=== PATIENT | male | born 1975 | race Caucasian/White ===

== ENCOUNTER → 2017-06-06 21:28 | Emergency (ER) | payer OTHER ==
[~2017-06-06 21:28] MED LIST: Polymyx/Trimethoprim OPTH* 10 ML BTL RIGHT EYE SCH
--- NOTE | 2017-06-06 22:40 | ED ---
Throat Pain/Nasal Congestion - HPI Summary HPI Summary: 42 male presents with complaints of foreign body sensation in his right eye that began this morning around 10:30am while cleaning his work bench with a blower. Patient has tried irrigating his eye however has not had relief. States his eyes has been very irritated. Has not taken any medications. Admits to some light sensitivity. Denies any vision changes, states its just hard because its constantly watering and irritated. Denies any issue with left eye. No other complaints. PMHx significant for celiac disease. - History of Current Complaint Chief Complaint: EDEyeProblem Time Seen by Provider: 06/06/17 21:45 Hx Obtained From: Patient Onset/Duration: Sudden Onset, Lasting Hours, Still Present Severity: Moderate Associated Signs And Symptoms: Positive: FB Sensation Cough: None - Allergies/Home Medications Allergies/Adverse Reactions: Allergies Allergy/AdvReac Type Severity Reaction Status Date / Time Erythromycin Allergy Unknown Verified 06/06/17 21:31 Reaction Details PMH/Surg Hx/FS Hx/Imm Hx Endocrine/Hematology History: Denies: Hx Diabetes Cardiovascular History: Denies: Hx Hypertension Respiratory History: Denies: Hx Asthma GI History: Reports: Other GI Disorders - celiac disease - Surgical History Surgery Procedure, Year, and Place: none - Immunization History Immunizations Up to Date: Yes Infectious Disease History: No Infectious Disease History: Denies: Traveled Outside the [place] in Last 30 Days - Family History Known Family History: Positive: None - Social History Alcohol Use: Occasionally Substance Use Type: Reports: None Smoking Status (MU): Heavy Every Day Tobacco Smoker Review of Systems Constitutional: Negative Positive: Photophobia - some, Drainage - tearing, Erythema - FB sensation, right eye irritation Cardiovascular: Negative Respiratory: Negative Musculoskeletal: Negative Neurological: Negative All Other Systems Reviewed And Are Negative: Yes Physical Exam Triage Information Reviewed: Yes Vital Signs On Initial Exam: Initial Vitals Temp Pulse Resp BP Pulse Ox 98.6 F 78 16 135/81 98 06/06/17 21:32 06/06/17 21:32 06/06/17 21:32 06/06/17 21:32 06/06/17 21:32 Vital Signs Reviewed: Yes Appearance: Positive: Well-Appearing, Well-Nourished, Pain Distress - mild irritation/discomfort with vision Skin: Positive: Warm, Skin Color Reflects Adequate Perfusion, Dry. Negative: Cold, Numb, Soft, Cyanosis @, Pale, Erythema @ Head/Face: Positive: Normal Head/Face Inspection Eyes: Positive: EOMI, LAYTON, Conjunctiva Inflammed - erythematous, injected right eye. tearing. appears irritated. fluroscein stain revealed small linear corneal abrasion. eyelid examination showed small FB, appears to be wood. no rust ring. removed with q-tip. no other findings, normal visual acuity and fundoscopic exam from what could be visualized, Discharge - tearing, Other: - left eye normal ENT: Positive: Normal ENT inspection, Hearing grossly normal Neck: Positive: Supple, Nontender Respiratory/Lung Sounds: Positive: Clear to Auscultation, Breath Sounds Present. Negative: Rales, Rhonchi, Wheezes Cardiovascular: Positive: Normal, RRR, Pulses are Symmetrical in both Upper and Lower Extremities. Negative: Murmur, Rub Musculoskeletal: Positive: Normal, Strength/ROM Intact Neurological: Positive: Normal, Sensory/Motor Intact, Alert, Oriented to Person Place, Time Psychiatric: Positive: Affect/Mood Appropriate Procedures - Eye Procedure Alcaine Drops Administered: Yes - right eye, for fluroscein stain and Fb removal Eye FB Removal: removal w/ cotton swab - of right eyelid, without complicated, patient tolerated procedure well Antibiotic Ointment/Drps Admin: right eye Diagnostics - Vital Signs Vital Signs Temp Pulse Resp BP Pulse Ox 06/06/17 21:32 98.6 F 78 16 135/81 98 - Laboratory Lab Statement: Any lab studies that have been ordered have been reviewed, and results considered in the medical decision making process. EENT Course/Dx - Course Course Of Treatment: fluroscein stain completed for right eye. corneal abrasion noted. patient tolerated procedure well. small FB removed from upper eyelid with q-tip without complication. patient had relief. no other concerns. antibiotic drops to prevent infection. aware of worsening signs and symptoms. follow up with pcp/optho if symptoms persist, worsen or new develop. cool compresses, ibuprofen and sunglasses recommended. - Differential Diagnoses Differential Diagnoses: Conjunctivitis, Corneal Abrasion, Foreign Body - Diagnoses Provider Diagnoses: Corneal abrasion, right, Foreign body of eyelid, right Discharge - Discharge Plan Condition: Stable Disposition: HOME Patient Education Materials: Corneal Abrasion (ED), Eye Foreign Body (ED) Referrals: Non Staff,Doctor [Primary Care Provider] - Additional Instructions: Use eye drops, 1 drop ever 3 hours for 5-7 days to prevent infection. Cool compresses over eye, sunglasses and ibuprofen may help soothe eye discomfort. Keep fingers out of eyes. Follow up with PCP. If new symptoms develop, persist or worsen please seek medical attention and make an appointment with opthomology.
[2017-06-06 23:01] VITALS: BP 128/75
== END | disposition home or self-care (01) ==
LOC: ED 21:28
DX: T15.01XA Foreign body in cornea, right eye, initial encounter (principal); S05.01XA Injury of conjunctiva and corneal abrasion without foreign body, right eye, initial encounter; X58.XXXA Exposure to other specified factors, initial encounter; Y93.9 Activity, unspecified; Y92.89 Other specified places as the place of occurrence of the external cause
CPT/HCPCS: 99282

== ENCOUNTER 2017-09-28 19:56 | Emergency (ER) | payer OTHER ==
[2017-09-28] MEDS ORDERED: Fluorescein Sodium TOPICAL* 1 MG TEST OPHTHALMIC ONE (20:18)
[2017-09-28] MEDS ORDERED: Tetracaine 0.5% OPTH.SOL 4 ML* 1 DROP BTL RIGHT EYE ONE (20:18)
[2017-09-28] MEDS ORDERED: Polymyx/Trimethoprim OPTH* 10 ML BTL RIGHT EYE ONE (20:55)
--- NOTE | 2017-09-28 20:56 | ED ---
Throat Pain/Nasal Congestion - HPI Summary HPI Summary: 42M presents with right eye pain. He states a branch hit him in the eye today. He states that his eye has been tearing. He denies any foreign body in the eye. He has been flushing it will saline. He admits to photophobia. He wear glasses. He does not wear contacts. pain is 10/10. He denies any pus drainage from eye. - History of Current Complaint Chief Complaint: EDEyeProblem Time Seen by Provider: 09/28/17 20:13 - Allergies/Home Medications Allergies/Adverse Reactions: Allergies Allergy/AdvReac Type Severity Reaction Status Date / Time Erythromycin Allergy Unknown Verified 09/28/17 20:02 Reaction Details PMH/Surg Hx/FS Hx/Imm Hx Endocrine/Hematology History: Denies: Hx Diabetes Cardiovascular History: Denies: Hx Hypertension Respiratory History: Denies: Hx Asthma GI History: Reports: Other GI Disorders - celiac disease - Surgical History Surgery Procedure, Year, and Place: none - Immunization History Immunizations Up to Date: No Infectious Disease History: No Infectious Disease History: Denies: Traveled Outside the [place] in Last 30 Days - Family History Known Family History: Positive: None - Social History Alcohol Use: Occasionally Substance Use Type: Reports: None Smoking Status (MU): Heavy Every Day Tobacco Smoker Review of Systems Negative: Fever Positive: Other - eye pain right eye Negative: Chest Pain Negative: Shortness Of Breath All Other Systems Reviewed And Are Negative: Yes Physical Exam Triage Information Reviewed: Yes Vital Signs On Initial Exam: Initial Vitals Temp Pulse Resp BP Pulse Ox 98.4 F 86 14 142/93 99 09/28/17 19:59 09/28/17 19:59 09/28/17 19:59 09/28/17 19:59 09/28/17 19:59 Completion Of Physical Exam Limited Due To: Dementia Appearance: Positive: Pain Distress Skin: Positive: Warm, Dry Head/Face: Positive: Normal Head/Face Inspection Eyes: Positive: Normal, EOMI, LAYTON, Conjunctiva Inflammed, Other: - uptake on fundoscopic 1/4cm at 12 position ENT: Positive: Normal ENT inspection, Pharynx normal, TMs normal Respiratory/Lung Sounds: Positive: Clear to Auscultation, Breath Sounds Present Cardiovascular: Positive: Normal, RRR Musculoskeletal: Positive: Normal Neurological: Positive: Normal Psychiatric: Positive: Normal - [place] Coma Scale Coma Scale Total: 15 Procedures - Eye Procedure Alcaine Drops Administered: Yes - right 1/4cm uptake at 12 position Diagnostics - Vital Signs Vital Signs Temp Pulse Resp BP Pulse Ox 09/28/17 19:59 98.4 F 86 14 142/93 99 - Laboratory Lab Statement: Any lab studies that have been ordered have been reviewed, and results considered in the medical decision making process. EENT Course/Dx - Course Course Of Treatment: 42M presents with right eye pain. He states a branch hit him in the eye today. He states that his eye has been tearing. He denies any foreign body in the eye. He has been flushing it will saline. He admits to photophobia. He wear glasses. He does not wear contacts. pain is 10/10. He denies any pus drainage from eye. on exam 1/4cm corneal abrasion at 12 position. will treat with polytrim. gave referral to ortho if does not improve. patient understand and agrees with plan. - Differential Diagnoses Differential Diagnoses: Conjunctivitis, Corneal Abrasion, Foreign Body - Diagnoses Provider Diagnoses: Corneal abrasion, right Discharge - Discharge Plan Condition: Good Disposition: HOME Patient Education Materials: Corneal Abrasion (ED) Referrals: Non Staff,Doctor [Primary Care Provider] - Abimael Miller MD [Medical Doctor] - Additional Instructions: Place 1 drop in eye 4 times a day for 5 days Use artificial tears or saline to rinse eye for symptomatic relief Take Tylenol or ibuprofen for pain Follow up with ophthalmology if no improvement in 5 days Return to ED if develop any new or worsening symptoms
[2017-09-28 21:22] VITALS: BP 132/66
== END 2017-09-28 21:24 | disposition home or self-care (01) ==
LOC: ED 19:56
DX: S05.01XA Injury of conjunctiva and corneal abrasion without foreign body, right eye, initial encounter (principal); W22.8XXA Striking against or struck by other objects, initial encounter; Y92.9 Unspecified place or not applicable; F17.200 Nicotine dependence, unspecified, uncomplicated; Z88.3 Allergy status to other anti-infective agents
CPT/HCPCS: 99281; A9270-GY

== ENCOUNTER 2018-05-23 14:00 | Emergency (ER) | payer OTHER ==
[2018-05-23] MEDS ORDERED: Ketorolac INJ* 60 MG/2 ML VIAL IM ONE (15:29)
[2018-05-23] MEDS ORDERED: methylPREDNISolone SOD 40 MG* 1 ML VIAL ONE (15:37)
[2018-05-23] MEDS ORDERED: methylPREDNISolone 125 MG* 2 ML VIAL IM SCH (16:00)
--- NOTE | 2018-05-23 16:14 | RAD ---
Indication: Neck pain, history of cervical laminectomy. CT of the cervical spine was obtained in the axial plane. Sagittal and coronal reconstructed images were obtained. The skull base demonstrates no evidence of fracture. Mastoid air cells are well aerated. The C1 ring is intact. No fracture is noted. The vertebral bodies from C2, C3, C4 are intact. No compression fracture is noted. At C3-C4 spondylitic ridge is noted with a small central disc protrusion indenting the thecal sac. No foraminal stenosis is noted. C4-C5 small central disc protrusion indents the thecal sac and may abut the spinal cord. No foraminal stenosis is noted. Fusion of C5-C6 with anterior plate and screws are noted. At C6-C7 spondylitic ridge is noted. No focal protrusion is noted. At C7-T1 disc space appears unremarkable. Lung apices are unremarkable. IMPRESSION: Anterior fusion of C5-C6. Small central disc protrusions are noted at C3-C4 and C4-C5.
--- NOTE | 2018-05-23 16:15 | RAD ---
Attention: Back pain. CT of the lumbar spine was obtained in the axial plane. Sagittal and coronal reconstructed images were obtained. The patient is status post laminectomy at L5 with transpedicular screws through L5 and S1. Posterior fusion is noted. Intervertebral disc spacer is noted. Endplate changes are noted. At L4-L5 minimal broad-based disc protrusion is noted. No central foraminal stenosis is noted. At L1-L2, L2-L3 and L3-L4 the disc space appears unremarkable. No fracture is identified. IMPRESSION: Laminectomy at L5 and S1. Posterior rodding at L5-S1 is noted. No hardware failure is noted. Transpedicular screws through L5 and S1.
--- NOTE | 2018-05-23 16:51 | ED ---
Back Pain - HPI Summary HPI Summary: Pt here w/ recurring, intermittent cervical pain w/ radiculopathy and LBP x 2 months. 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 Has decreased sensation over Rt forearm which he has on/off over the years and pain in shoulders that feels like he's being stabbed. Denies weakness in UE's and no numbness/tingling/weakness in LE's or change in bowel/bladder habits. No ATKINS. Has not taken anything for pain as he does not like to take meds. H/o surgery of cervical and lumbar spines in the remote past that helped his pain then and he's been addressing intermittent pain w/ live in caregiver and stretches. Despite these efforts as of late, he is unable to control his pain and is here for pain relief - prefers to avoid opiates. - History of Current Complaint Chief Complaint: EDBackInjuryPain Stated Complaint: ARM/BACK PAIN Time Seen by Provider: 05/23/18 14:31 Hx Obtained From: Patient Pain Intensity: 8 - Allergies/Home Medications Allergies/Adverse Reactions: Allergies Allergy/AdvReac Type Severity Reaction Status Date / Time erythromycin base Allergy Unknown Verified 05/23/18 15:31 Reaction Details PMH/Surg Hx/FS Hx/Imm Hx Previously Healthy: Yes Endocrine/Hematology History: Denies: Hx Diabetes Cardiovascular History: Denies: Hx Hypertension Respiratory History: Denies: Hx Asthma GI History: Reports: Other GI Disorders - celiac disease Neurological History: Reports: Other Neuro Impairments/Disorders - cervical and lumbar pathology w/ surgerical repair years ago - Surgical History Surgery Procedure, Year, and Place: none Infectious Disease History: No Infectious Disease History: Denies: Traveled Outside the [place] in Last 30 Days - Family History Known Family History: Positive: None - Social History Occupation: Employed Full-time - self-employed Alcohol Use: None Substance Use Type: Reports: Marijuana Hx Tobacco Use: Yes Smoking Status (MU): Current Every Day Smoker Review of Systems Constitutional: Negative Negative: Fever, Chills, Fatigue Eyes: Negative Negative: Photophobia, Blurred Vision, Diplopia Cardiovascular: Negative Respiratory: Negative Gastrointestinal: Negative Genitourinary: Negative Negative: incontinence Positive: Arthralgia. Negative: Decreased ROM, Edema Skin: Negative Positive: Paresthesia. Negative: Headache, Weakness, Numbness Psychological: Normal All Other Systems Reviewed And Are Negative: Yes Physical Exam Triage Information Reviewed: Yes Vital Signs On Initial Exam: Initial Vitals Temp Pulse Resp BP Pulse Ox 99 F 70 16 120/68 98 05/23/18 14:16 05/23/18 14:16 05/23/18 14:16 05/23/18 14:16 05/23/18 14:16 Vital Signs Reviewed: Yes Appearance: Positive: Well-Appearing, Pain Distress - moderate, Thin - good muscle tone, lean Skin: Positive: Warm, Skin Color Reflects Adequate Perfusion, Dry Head/Face: Positive: Normal Head/Face Inspection Eyes: Positive: EOMI, Conjunctiva Clear ENT: Positive: Hearing grossly normal, Pharynx normal - mucosa moist Neck: Positive: Supple Respiratory/Lung Sounds: Positive: Breath Sounds Present Cardiovascular: Positive: Normal, Pulses are Symmetrical in both Upper and Lower Extremities. Negative: Leg Edema Left, Leg Edema Right Musculoskeletal: Positive: Strength/ROM Intact, Pain @ - pt has pain at rest in his shoulders and lower back - he rubs his shoulders and moves around to alleviate discomfort at times Neurological: Positive: Normal, Sensory/Motor Intact, Alert, Oriented to Person Place, Time, CN Intact II-III, Reflexes Intact Psychiatric: Positive: Normal Diagnostics - Vital Signs Vital Signs Temp Pulse Resp BP Pulse Ox 05/23/18 14:16 99 F 70 16 120/68 98 - Laboratory Lab Statement: Any lab studies that have been ordered have been reviewed, and results considered in the medical decision making process. Back Pain Course/Dx - Course Course Of Treatment: Since pt has not had imaging in many years and he's not able to control his pain w/ typical conservative care measures in the face of an injury 2 months ago, we opted to CT his cervical and lumbar spines today. Herniations were identified along w DDD. Will try anti-inflammatory regimen and close f/u to see if PT or neurosurg consult are necessary based on improvement or progression of sx. Reviewed danger s/sx of when to return to the ED. Pt agrees and is happy w/ plan. - Diagnoses Provider Diagnoses: Herniation of cervical intervertebral disc with radiculopathy, Herniation of lumbar intervertebral disc Discharge - Sign-Out/Discharge Documenting (check all that apply): Patient Departure - Discharge Plan Condition: Stable Disposition: HOME Prescriptions: Cyclobenzaprine TAB* [Flexeril 10 MG TAB*] 10 mg PO TID PRN #15 tab PRN Reason: Pain Naproxen [Naprosyn 500 mg tab] 500 mg PO BID PRN #20 tablet PRN Reason: Pain predniSONE TAB* [Deltasone 20 MG TAB*] 60 mg PO DAILY #15 tab Patient Education Materials: Lumbar Disc Herniation (ED), Cervical Disc Herniation (ED) Referrals: Jake Motley MD [Medical Doctor] - [facility] [Outside] Additional Instructions: Rest, ice alternating with heat and gentle stretches toprevent stiffness No lifting, bending, twisting, overhead reaching until cleared by neurosurgery - call tomorrow to schedule an appointment You may also follow-up with [facility] in an effort to have quicker follow -up and possibly an MRI through their practice *If in the meantime you develop weakness, change in bowel/bladder habits or numbness, return to the ED - Billing Disposition and Condition Condition: STABLE Disposition: Home
[2018-05-23 17:11] VITALS: BP 117/72
== END 2018-05-23 17:09 | disposition home or self-care (01) ==
LOC: ED 14:00
DX: M50.121 Cervical disc disorder at C4-C5 level with radiculopathy (principal); M51.16 Intervertebral disc disorders with radiculopathy, lumbar region; Z98.1 Arthrodesis status; F17.200 Nicotine dependence, unspecified, uncomplicated; Z88.3 Allergy status to other anti-infective agents
CPT/HCPCS: 72125; 72131; 96372; 99282; J1885; J2920